=== PATIENT | male | born 1955 | race African-American/Black ===

== ENCOUNTER 2019-08-02 08:31 | Inpatient (IN) | payer OTHER ==
[~2019-08-02] VITALS: Ht 193 cm; Wt 72.6 kg
[~2019-08-02 08:31] MED LIST: BECL8.7A5 IH; LEVAHFA IH; OLOP5DRO15 OP
[2019-08-02] MEDS ORDERED: ALBU90AE IH (08:41)
[2019-08-02] MEDS ORDERED: CARB200C7 PO (08:49)
[2019-08-02] MEDS ORDERED: ADV250 IH (08:49)
[2019-08-02] MEDS ORDERED: NICO-650 TP (08:49)
[2019-08-02] MEDS ORDERED: PREG200C28 PO (08:49)
[2019-08-02] MEDS ORDERED: ESOM5SUS PO (08:49)
[2019-08-02] MEDS ORDERED: TRIA60LO13 TP (08:49)
[2019-08-02] MEDS ORDERED: ATOR40TA71 PO (08:49)
[2019-08-02] MEDS ORDERED: HYD50 PO (08:49)
[2019-08-02] MEDS ORDERED: ASPI81TA87 PO (08:49)
[2019-08-02] MEDS ORDERED: MV-M1TAB20 PO (08:49)
[2019-08-02] MEDS ORDERED: DILT180C89 PO (08:49)
[2019-08-02] MEDS ORDERED: HYDR-4268 TP (08:49)
[2019-08-02] MEDS ORDERED: NITROGLYCERIN 2% (1 GM=INCH) PACKET TP ONE (09:00)
[2019-08-02 09:01] LABS: BASOPHILS % (AUTO) 1.9 % (0.0-2.0); EOSINOPHILS % (AUTO) 4.4 % (1.0-6.0); HEMATOCRIT 45.8 % (41-53); HEMOGLOBIN 15.4 g/dL (13.5-17.5); LYMPHOCYTES # (AUTO) 1.6 K/uL (1.0-4.8); LYMPHOCYTES % (AUTO) 26.2 % (22.0-44.0); MEAN CORPUSCULAR HEMOGLOBIN 30.6 pg (26.0-34.0); MEAN CORPUSCULAR HGB CONC 33.6 G/dL (31.0-37.0); MEAN CORPUSCULAR VOLUME 91 fL (80-100); MONOCYTES # (AUTO) 0.8 K/uL (0.1-1.0); MONOCYTES % (AUTO) 13.3 % (2.0-9.0); NEUTROPHILS # (AUTO) 3.3 K/uL (1.8-7.7); NEUTROPHILS % (AUTO) 54.2 % (40.0-70.0); PLATELET COUNT (AUTO) 132 K/uL (150-450); RED BLOOD CELL COUNT(AUTO) 5.03 MIL/uL (4.50-5.90); RED CELL DISTRIBUTION WIDTH 13.6 % (11.5-14.5)
[2019-08-02 09:40] LABS: ANION GAP 9 mmol/L (8-16); CARBON DIOXIDE 30 mmol/L (22-29); CHLORIDE 103 mmol/L (98-107); CREATININE 0.98 mg/dL (0.60-1.30); GLOMERULAR FILTR. RATE CALC > 60 mL/min (>60); GLUCOSE,RANDOM 96 mg/dL (70-110); POTASSIUM 4.3 mmol/L (3.5-5.1); SODIUM SERUM 142 mmol/L (136-145); UREA NITROGEN, BLOOD 11 mg/dL (7-18)
[2019-08-02 09:49] LABS: CALCIUM, TOTAL 9.5 mg/dL (8.8-10.5)
[2019-08-02] MEDS ORDERED: ONDANSETRON HCL 4 MG/2 ML VIAL IVP PRN ×2 (10:15→12:30)
[2019-08-02] MEDS ORDERED: ACETAMINOPHEN 325 MG TABLET PO PRN (10:15)
[2019-08-02 10:39] LABS: APPEARANCE,URINE CLEAR (CLEAR); BILIRUBIN,URINE NEGATIVE (NEGATIVE); GLUCOSE, URINE (UA) NEGATIVE (NEGATIVE); KETONES,URINE NEGATIVE (NEGATIVE); LEUKOCYTE ESTERASE ,URINE NEGATIVE (NEGATIVE); NITRATE,URINE NEGATIVE (NEGATIVE); OCCULT BLOOD,URINE NEGATIVE (NEGATIVE); PH,URINE 6.5 (5.0-8.0); PROTEIN,URINE NEGATIVE (NEGATIVE); UROBILINOGEN,URINE 0.2 mg/dL (<=1.0)
[2019-08-02 10:59] LABS: AMPHET/METH SCREEN,URINE NEGATIVE (NEGATIVE); BARBITURATE SCREEN, URINE NEGATIVE (NEGATIVE); BENZODIAZEPINES SCREEN,URINE NEGATIVE (NEGATIVE); CANNABINOID SCREEN,URINE POSITIVE (NEGATIVE); COCAINE SCREEN,URINE NEGATIVE (NEGATIVE); METHADONE SCREEN, URINE NEGATIVE (NEGATIVE); OPIATE SCREEN,URINE NEGATIVE (NEGATIVE)
[2019-08-02 11:03] LABS: PHENCYCLIDINE SCREEN,URINE NEGATIVE (NEGATIVE)
[2019-08-02] MEDS ORDERED: MORPHINE SULFATE 2 MG/ML SYRINGE IVP PRN (12:30)
[2019-08-02] MEDS ORDERED: BISACODYL 10 MG RECTAL RECTAL SUPPOSITORY PR PRN (12:30)
[2019-08-02] MEDS ORDERED: ZOLPIDEM TARTRATE 5 MG TABLET PO PRN (12:30)
[2019-08-02] MEDS ORDERED: MAGNESIUM HYDROXIDE SUSPENSION 30 ML UDCUP PO PRN (12:30)
[2019-08-02] MEDS ORDERED: HYDROCODONE/ACETAMINOPHEN 5-325 MG TABLET PO PRN (12:30)
[2019-08-02] MEDS: HEPARIN SODIUM,PORCINE 5,000 UNITS/ML VIAL SQ SCH (15:09)
[2019-08-02] MEDS: NITROGLYCERIN 2% (1 GM=INCH) PACKET TP SCH (15:09)
[2019-08-02 16:28] VITALS: BP 156/80
[2019-08-02 20:12] VITALS: BP 145/77
[2019-08-02] MEDS ORDERED: DOCUSATE SODIUM 100 MG CAPSULE PO SCH (21:00)
[2019-08-02] MEDS: ACETAMINOPHEN 325 MG TABLET PO PRN (22:29)
[2019-08-03 00:12] VITALS: BP 134/72
[2019-08-03 04:50] VITALS: BP 126/97
[2019-08-03] MEDS: ACETAMINOPHEN 325 MG TABLET PO PRN (06:55)
[2019-08-03 07:20] LABS: BASOPHILS % (AUTO) 2.1 % (0.0-2.0); EOSINOPHILS % (AUTO) 5.9 % (1.0-6.0); HEMATOCRIT 44.4 % (41-53); HEMOGLOBIN 14.8 g/dL (13.5-17.5); LYMPHOCYTES # (AUTO) 1.5 K/uL (1.0-4.8); LYMPHOCYTES % (AUTO) 28.4 % (22.0-44.0); MEAN CORPUSCULAR HEMOGLOBIN 30.4 pg (26.0-34.0); MEAN CORPUSCULAR HGB CONC 33.4 G/dL (31.0-37.0); MEAN CORPUSCULAR VOLUME 91 fL (80-100); MONOCYTES # (AUTO) 0.8 K/uL (0.1-1.0); MONOCYTES % (AUTO) 14.8 % (2.0-9.0); NEUTROPHILS # (AUTO) 2.5 K/uL (1.8-7.7); NEUTROPHILS % (AUTO) 48.8 % (40.0-70.0); PLATELET COUNT (AUTO) 123 K/uL (150-450); RED BLOOD CELL COUNT(AUTO) 4.88 MIL/uL (4.50-5.90); RED CELL DISTRIBUTION WIDTH 13.6 % (11.5-14.5)
[2019-08-03 07:57] LABS: ANION GAP 12 mmol/L (8-16); CALCIUM, TOTAL 9.1 mg/dL (8.8-10.5); CARBON DIOXIDE 25 mmol/L (22-29); CHLORIDE 103 mmol/L (98-107); CHOL/HDL RATIO 3.4 (4.2-7.3); CHOLESTEROL 208 mg/dL (131-200); CREATININE 0.75 mg/dL (0.60-1.30); GLOMERULAR FILTR. RATE CALC > 60 mL/min (>60); GLUCOSE,RANDOM 99 mg/dL (70-110); HDL CHOLESTEROL 62 mg/dL (40-60); LDL CHOL (CALC.) 118 mg/dL (0-130); SODIUM SERUM 140 mmol/L (136-145); TRIGLYCERIDES 142 mg/dL (15-150); UREA NITROGEN, BLOOD 12 mg/dL (7-18)
[2019-08-03] MEDS: NITROGLYCERIN 2% (1 GM=INCH) PACKET TP SCH ×2 (08:00)
[2019-08-03] MEDS: HEPARIN SODIUM,PORCINE 5,000 UNITS/ML VIAL SQ SCH ×2 (08:00)
[2019-08-03] MEDS ORDERED: PANTOPRAZOLE SODIUM 40 MG DR TABLET PO SCH (09:00)
[2019-08-03] MEDS ORDERED: ASPIRIN 81 MG CHEWABLE TABLET PO SCH (09:00)
== END 2019-08-03 08:10 | disposition left against medical advice (07) | DRG 313 ==
LOC: EMS 08:38 → 5S 15:34
PROVIDERS: ADMIT Internal Medicine; ATTEND Internal Medicine
DX: R07.9 Chest pain, unspecified (principal); I25.10 Atherosclerotic heart disease of native coronary artery without angina pectoris; J44.9 Chronic obstructive pulmonary disease, unspecified; F17.210 Nicotine dependence, cigarettes, uncomplicated; M19.90 Unspecified osteoarthritis, unspecified site; Z88.0 Allergy status to penicillin; Z91.013 Allergy to seafood
CPT/HCPCS: 93005; 93306; G0378; J1644

== ENCOUNTER 2022-11-12 16:54 | Inpatient (IN) | payer OTHER ==
[~2022-11-12] VITALS: Ht 193 cm; Wt 61.1 kg
[~2022-11-12 16:54] MED LIST changes: +ADV250 IH; +ALBU90AE IH; +ASPI81TA87 PO; +ATOR40TA71 PO; -BECL8.7A5 IH; +CARB200C7 PO; +DILT180C89 PO; +ESOM5SUS PO; +HYDR-4268 TP; +HYDR-4584 PO; -LEVAHFA IH; +MV-M1TAB20 PO; +NICO-650 TP; -OLOP5DRO15 OP; +PREG200C28 PO; +TRIA60LO13 TP
[2022-11-12] MEDS ORDERED: PREG75 PO (17:49)
[2022-11-12] MEDS ORDERED: CHOL25TA4 PO (17:49)
[2022-11-12] MEDS ORDERED: NORT25CA3 PO (17:49)
[2022-11-12] MEDS ORDERED: AMLO-257 PO (17:49)
[2022-11-12] MEDS ORDERED: FLUT1BLS15 PO (17:49)
[2022-11-12 18:08] LABS: BASOPHILS % (AUTO) 1.9 % (0.0-2.0); EOSINOPHILS % (AUTO) 5.4 % (1.0-6.0); HEMATOCRIT 42.6 % (41-53); HEMOGLOBIN 13.5 g/dL (13.5-17.5); LYMPHOCYTES # (AUTO) 0.9 K/uL (1.0-4.8); LYMPHOCYTES % (AUTO) 9.6 % (22.0-44.0); MEAN CORPUSCULAR HEMOGLOBIN 26.9 pg (26.0-34.0); MEAN CORPUSCULAR HGB CONC 31.7 G/dL (31.0-37.0); MEAN CORPUSCULAR VOLUME 85 fL (80-100); MONOCYTES # (AUTO) 1.1 K/uL (0.1-1.0); MONOCYTES % (AUTO) 11.5 % (2.0-9.0); NEUTROPHILS # (AUTO) 6.7 K/uL (1.8-7.7); NEUTROPHILS % (AUTO) 71.6 % (40.0-70.0); PLATELET COUNT (AUTO) 424 K/uL (150-450); RED BLOOD CELL COUNT(AUTO) 5.02 MIL/uL (4.50-5.90); RED CELL DISTRIBUTION WIDTH 14.9 % (11.5-14.5)
[2022-11-12 18:12] LABS: ANION GAP 7 mmol/L (8-16); CALCIUM, TOTAL 10.2 mg/dL (8.8-10.5); CARBON DIOXIDE 30 mmol/L (22-29); CHLORIDE 99 mmol/L (98-107); GLOMERULAR FILTR. RATE CALC > 60 mL/min (>60); GLUCOSE,RANDOM 113 mg/dL (70-110); POTASSIUM 4.7 mmol/L (3.5-5.1); SODIUM SERUM 136 mmol/L (136-145)
[2022-11-12 18:18] LABS: ALANINE AMINOTRANSFERASE 12 U/L (12-78); ALBUMIN 3.5 g/dL (3.4-5.0); ALKALINE PHOSPHATASE 158 U/L (46-116); ASPARTATE AMINOTRANSFERASE 25 U/L (15-37); BILIRUBIN,TOTAL 0.3 mg/dL (0.1-1.0); TOTAL PROTEIN, SERUM 8.9 g/dL (6.4-8.2)
[2022-11-12] MEDS ORDERED: IPRATROPIUM BROMIDE 0.5 MG/2.5 ML NEB SOLUTION NEB ONE (18:30)
[2022-11-12] MEDS ORDERED: ALBUTEROL SULFATE 2.5 MG/0.5 ML NEB SOLUTION NEB ONE (18:30)
[2022-11-12 18:33] LABS: B-TYPE NATRIURETIC PEPTIDE 14 pg/mL (0-100)
[2022-11-12 18:43] VITALS: PULSE 104; RESP 22; O2SAT 95
[2022-11-12 18:45] VITALS: PULSE 104; RESP 22; O2SAT 95
[2022-11-12 19:20] LABS: INR 1.1 (0.9-1.1); PROTHROMBIN TIME 11.1 SEC (9.4-11.6)
[2022-11-12] MEDS ORDERED: RINGERS LACTATED IV ONE (19:45)
[2022-11-12] MEDS ORDERED: ONDANSETRON HCL 4 MG/2 ML VIAL IVP PRN (19:45)
[2022-11-12] MEDS ORDERED: *CLINICAL-CEFEPIME DOSING CLINICAL ONE (19:45)
[2022-11-12] MEDS ORDERED: CEFEPIME HCL 2 GM in DEXTROSE 5%-WATER 50 ML IV ONE (20:00)
[2022-11-12 20:22] LABS: LACTIC ACID 3.5 mmol/L (0.4-2.0)
[2022-11-12] MEDS ORDERED: VANCOMYCIN HCL 1.5 GM in DEXTROSE 5%-WATER 250 ML IV ONE (21:00)
[2022-11-12] MEDS: IPRATROPIUM BROMIDE 0.5 MG/2.5 ML NEB SOLUTION NEB PRN (21:23)
[2022-11-12] MEDS: ALBUTEROL SULFATE 2.5 MG/0.5 ML NEB SOLUTION NEB PRN (21:23)
[2022-11-12 21:29] VITALS: PULSE 105; RESP 23; O2SAT 96
[2022-11-12 21:34] LABS: APPEARANCE,URINE CLEAR (CLEAR); BILIRUBIN,URINE NEGATIVE (NEGATIVE); GLUCOSE, URINE (UA) NEGATIVE (NEGATIVE); KETONES,URINE TRACE mg/dL (NEGATIVE); LEUKOCYTE ESTERASE ,URINE NEGATIVE (NEGATIVE); NITRATE,URINE NEGATIVE (NEGATIVE); OCCULT BLOOD,URINE NEGATIVE (NEGATIVE); PROTEIN,URINE NEGATIVE (NEGATIVE); SPECIFIC GRAVITIY, URINE 1.013 (1.003-1.030); UROBILINOGEN,URINE <=1.0 mg/dL (<=1.0)
[2022-11-12] MEDS ORDERED: SODIUM CHLORIDE 0.9% 250 ML IV ONE (22:00)
[2022-11-12] MEDS: DOCUSATE SODIUM 100 MG CAPSULE PO SCH (22:46)
[2022-11-13] VITALS (11 sets, daily range): BP systolic 117–156; BP diastolic 51–75; PULSE 89–105; RESP 17–23; TEMP 97.9–98.7; O2SAT 94–98
[2022-11-13 00:15] LABS: ABG BASE EXCESS 5.3 mmol/L (-2.0-3.0); ABG CARBOXYHEMOGLOBIN 0.9 % (0.0-1.5); ABG HCO3 28.8 mmol/L (22.0-26.0); ABG METHEMOGLOBIN 0.2 % (0.0-1.5); ABG OXYGEN CONTENT 17.9 mL/dL (15.0-23.0); ABG OXYGEN SATURATION 93.9 % (95.0-98.0); ABG OXYHEMOGLOBIN 92.9 % (94.0-100.0); ABG PCO2 41 mmHg (35-45); ABG PH 7.468 (7.35-7.450); ABG TOTAL HEMOGLOBIN 13.7 G/dL (12.0-18.0); PO2, ARTERIAL BG 68.2 mmHg (79.0-87.0); SOURCE, BLOOD GAS ARTERIAL; TEMPERATURE, FAHRENHEIT, BG 98.6 FAHREN (96.0-98.6)
[2022-11-13 00:16] LABS: O2 DEVICE,BLOOD GAS CANNULA (ROOM AIR); SITE, BLOOD GAS RT RADIAL
[2022-11-13] MEDS: ALBUTEROL SULFATE 2.5 MG/0.5 ML NEB SOLUTION NEB PRN ×3 (00:57→16:26)
[2022-11-13] MEDS: IPRATROPIUM BROMIDE 0.5 MG/2.5 ML NEB SOLUTION NEB PRN ×3 (00:57→16:26)
[2022-11-13] MEDS: ACETAMINOPHEN 325 MG TABLET PO PRN ×2 (01:31→23:10)
[2022-11-13 07:23] LABS: ANION GAP 10 mmol/L (8-16); CALCIUM, TOTAL 9.1 mg/dL (8.8-10.5); CARBON DIOXIDE 27 mmol/L (22-29); CHLORIDE 99 mmol/L (98-107); CREATININE 0.52 mg/dL (0.60-1.30); GLOMERULAR FILTR. RATE CALC > 60 mL/min (>60); GLUCOSE,RANDOM 104 mg/dL (70-110); POTASSIUM 3.8 mmol/L (3.5-5.1); SODIUM SERUM 136 mmol/L (136-145)
[2022-11-13] MEDS ORDERED: VANCOMYCIN HCL 750 MG in DEXTROSE 5%-WATER 250 ML IV ONE (08:00)
[2022-11-13] MEDS: DOCUSATE SODIUM 100 MG CAPSULE PO SCH ×2 (09:32→19:42)
[2022-11-13] MEDS: CEFEPIME HCL 2 GM in DEXTROSE 5%-WATER 50 ML IV SCH ×2 (09:32→18:14)
[2022-11-13] MEDS: RINGERS SOLUTION,LACTATED 1,000 ML IV SCH ×2 (09:34→20:46)
[2022-11-13] MEDS: HEPARIN SODIUM,PORCINE 5,000 UNITS/ML VIAL SQ SCH ×4 (09:34→23:57)
[2022-11-13] MEDS ORDERED: ALBUTEROL SULFATE HFA 90 MCG/PUFF 8 GM INHALER IH PRN (11:30)
[2022-11-13] MEDS: PREGABALIN 75 MG CAPSULE PO SCH ×2 (16:28→20:46)
[2022-11-13] MEDS: MethylPREDNISolone SOD SUCC 40 MG/ML VIAL IVP SCH ×2 (18:14→23:57)
[2022-11-13] MEDS ORDERED: ZOLP-162 PO (19:44)
[2022-11-13] MEDS: FLUTICASONE/VILANTEROL 200-25 MCG/INH INHALER [14] IH SCH (20:46)
[2022-11-13] MEDS: BUDESONIDE 0.5 MG/2 ML NEB SOLUTION NEB SCH (21:00)
[2022-11-13] MEDS: MELATONIN 3 MG TABLET PO PRN (23:11)
[2022-11-14] VITALS (10 sets, daily range): BP systolic 116–139; BP diastolic 60–74; PULSE 74–102; RESP 16–20; TEMP 97.8–98.2; O2SAT 95–98
[2022-11-14] MEDS: MethylPREDNISolone SOD SUCC 40 MG/ML VIAL IVP SCH ×4 (06:34→23:52)
[2022-11-14] MEDS: CEFEPIME HCL 2 GM in DEXTROSE 5%-WATER 50 ML IV SCH ×2 (06:35→18:40)
[2022-11-14] MEDS: ACETAMINOPHEN 325 MG TABLET PO PRN ×2 (06:37→20:11)
[2022-11-14] MEDS: RINGERS SOLUTION,LACTATED 1,000 ML IV SCH ×2 (06:37→16:56)
[2022-11-14 07:24] LABS: ANION GAP 10 mmol/L (8-16); CARBON DIOXIDE 27 mmol/L (22-29); CHLORIDE 98 mmol/L (98-107); CREATININE 0.51 mg/dL (0.60-1.30); GLOMERULAR FILTR. RATE CALC > 60 mL/min (>60); GLUCOSE,RANDOM 139 mg/dL (70-110); POTASSIUM 4.5 mmol/L (3.5-5.1); SODIUM SERUM 135 mmol/L (136-145)
[2022-11-14 07:35] LABS: VANCOMYCIN,RANDOM 3.2 mcg/mL (25.0-50.0)
[2022-11-14] MEDS: BUDESONIDE 0.5 MG/2 ML NEB SOLUTION NEB SCH ×2 (08:08→19:45)
[2022-11-14] MEDS: DOCUSATE SODIUM 100 MG CAPSULE PO SCH ×2 (08:59→20:11)
[2022-11-14] MEDS: ATORVASTATIN CALCIUM 40 MG TABLET PO SCH (08:59)
[2022-11-14] MEDS: PREGABALIN 75 MG CAPSULE PO SCH ×3 (08:59→20:11)
[2022-11-14] MEDS: HEPARIN SODIUM,PORCINE 5,000 UNITS/ML VIAL SQ SCH ×3 (08:59→23:52)
[2022-11-14] MEDS: CHOLECALCIFEROL (VIT D3) 1,000 UNITS [25 MCG] TABLET PO SCH (09:00)
[2022-11-14] MEDS: ASPIRIN 81 MG DR TABLET PO SCH (09:00)
[2022-11-14] MEDS ORDERED: VANCOMYCIN HCL 750 MG in DEXTROSE 5%-WATER 250 ML IV ONE (10:15)
[2022-11-14 15:36] LABS: ABG BASE EXCESS 4.8 mmol/L (-2.0-3.0); ABG CARBOXYHEMOGLOBIN 0.6 % (0.0-1.5); ABG HCO3 28.6 mmol/L (22.0-26.0); ABG METHEMOGLOBIN 0.3 % (0.0-1.5); ABG OXYGEN CONTENT 17.9 mL/dL (15.0-23.0); ABG OXYGEN SATURATION 97.7 % (95.0-98.0); ABG OXYHEMOGLOBIN 96.8 % (94.0-100.0); ABG PCO2 38 mmHg (35-45); ABG PH 7.486 (7.35-7.450); ABG TOTAL HEMOGLOBIN 13.1 G/dL (12.0-18.0); PO2, ARTERIAL BG 94.7 mmHg (79.0-87.0); SITE, BLOOD GAS RT RADIAL; SOURCE, BLOOD GAS ARTERIAL; TEMPERATURE, FAHRENHEIT, BG 98.2 FAHREN (96.0-98.6)
[2022-11-14 15:37] LABS: O2 DEVICE,BLOOD GAS NC (ROOM AIR)
[2022-11-14] MEDS: ALBUTEROL SULFATE 2.5 MG/0.5 ML NEB SOLUTION NEB PRN (16:33)
[2022-11-14] MEDS: IPRATROPIUM BROMIDE 0.5 MG/2.5 ML NEB SOLUTION NEB PRN (16:34)
[2022-11-14] MEDS: VANCOMYCIN HCL 750 MG in DEXTROSE 5%-WATER 250 ML IV SCH ×2 (17:00→23:57)
[2022-11-14] MEDS: FLUTICASONE/VILANTEROL 200-25 MCG/INH INHALER [14] IH SCH (20:12)
[2022-11-14] MEDS: MELATONIN 3 MG TABLET PO PRN (23:53)
[2022-11-15] VITALS (7 sets, daily range): BP systolic 105–139; BP diastolic 47–83; PULSE 73–91; RESP 18–19; TEMP 97.5–98.2; O2SAT 96–97
[2022-11-15] MEDS: ACETAMINOPHEN 325 MG TABLET PO PRN ×4 (00:43→16:26)
[2022-11-15] MEDS: RINGERS SOLUTION,LACTATED 1,000 ML IV SCH (04:51)
[2022-11-15] MEDS: MethylPREDNISolone SOD SUCC 40 MG/ML VIAL IVP SCH (05:25)
[2022-11-15] MEDS: CEFEPIME HCL 2 GM in DEXTROSE 5%-WATER 50 ML IV SCH (06:30)
[2022-11-15 07:40] LABS: ANION GAP 8 mmol/L (8-16); CALCIUM, TOTAL 8.9 mg/dL (8.8-10.5); CARBON DIOXIDE 28 mmol/L (22-29); CHLORIDE 99 mmol/L (98-107); CREATININE 0.55 mg/dL (0.60-1.30); GLOMERULAR FILTR. RATE CALC > 60 mL/min (>60); GLUCOSE,RANDOM 149 mg/dL (70-110); POTASSIUM 4.2 mmol/L (3.5-5.1); SODIUM SERUM 135 mmol/L (136-145)
[2022-11-15] MEDS: VANCOMYCIN HCL 750 MG in DEXTROSE 5%-WATER 250 ML IV SCH (08:00)
[2022-11-15] MEDS: CHOLECALCIFEROL (VIT D3) 1,000 UNITS [25 MCG] TABLET PO SCH (08:00)
[2022-11-15] MEDS: ASPIRIN 81 MG DR TABLET PO SCH (08:00)
[2022-11-15] MEDS: PREGABALIN 75 MG CAPSULE PO SCH ×2 (08:00→16:26)
[2022-11-15] MEDS: HEPARIN SODIUM,PORCINE 5,000 UNITS/ML VIAL SQ SCH ×2 (08:00→16:00)
[2022-11-15] MEDS: ATORVASTATIN CALCIUM 40 MG TABLET PO SCH (08:00)
[2022-11-15] MEDS: DOCUSATE SODIUM 100 MG CAPSULE PO SCH (08:01)
[2022-11-15] MEDS ORDERED: PredniSONE 20 MG TABLET PO SCH (09:00)
[2022-11-15] MEDS: BUDESONIDE 0.5 MG/2 ML NEB SOLUTION NEB SCH (09:19)
[2022-11-15] MEDS ORDERED: PRED-549 PO (11:18)
[2022-11-15] MEDS ORDERED: PRED-554 PO (11:18)
[2022-11-15] MEDS ORDERED: FLUT1BLS15 PO (11:18)
[2022-11-15] MEDS ORDERED: ASPI-1444 PO (11:18)
[2022-11-15] MEDS ORDERED: LEVO750T68 PO (11:18)
[2022-11-15] MEDS ORDERED: ALBU18HF7 IH (11:18)
[2022-11-15] MEDS ORDERED: ATOR40TA71 PO (11:18)
[2022-11-15] MEDS ORDERED: VANCOMYCIN 1GM/WATER(PEG/NADA) 200 ML IV SCH (16:00)
== END 2022-11-15 18:00 | disposition home or self-care (01) | DRG 871 ==
LOC: EMS 17:27 → 5S 11-13 00:32
PROVIDERS: ADMIT Internal Medicine; ATTEND Internal Medicine
DX: A41.9 Sepsis, unspecified organism (principal); E43 Unspecified severe protein-calorie malnutrition; J96.01 Acute respiratory failure with hypoxia; J18.9 Pneumonia, unspecified organism; J94.8 Other specified pleural conditions; J93.9 Pneumothorax, unspecified; Z68.1 Body mass index [BMI] 19.9 or less, adult; C34.91 Malignant neoplasm of unspecified part of right bronchus or lung; R65.20 Severe sepsis without septic shock; J44.9 Chronic obstructive pulmonary disease, unspecified; I25.10 Atherosclerotic heart disease of native coronary artery without angina pectoris; M19.90 Unspecified osteoarthritis, unspecified site; C43.10 Malignant melanoma of unspecified eyelid, including canthus; Z88.0 Allergy status to penicillin; Z79.82 Long term (current) use of aspirin; Z79.899 Other long term (current) drug therapy; Z82.49 Family history of ischemic heart disease and other diseases of the circulatory system; Z82.5 Family history of asthma and other chronic lower respiratory diseases; Z87.891 Personal history of nicotine dependence
CPT/HCPCS: 36600; 71045; 71250; 80048; 80053; 80202; 81003; 82805; 83605; 83880; 84145; 84484; 85025; 85610; 85730; 87040; 87081; 93005; 94060; 94640; 99285; J0692; J1644; J2920; J3370; J3535; J7060; J7120; Q9967; 36415-L1; 36415-TC; J7613